=== PATIENT | male | born 1940 | race African-American/Black ===

== ENCOUNTER 2018-03-13 14:00 | Inpatient (IN) ==
--- NOTE | 2018-03-13 14:07 | Emergency Department Note ---
Disposition Clinical Impression: Hypoglycemia Disposition: Admitted As Inpatient Condition: Serious Referrals: Gavin Diallo MD [Primary Care Provider] - Forms: ED Satisfaction Letter Time of Disposition: 15:56 (I spoke with the hospitalist Dr. Boyd, and patient will be admitted) Altered Mental Status HPI - General Chief Complaint: ED Altered Mental Status Stated Complaint: LOW BLOOD SUGAR Time Seen by Provider: 03/13/18 14:05 Source: EMS, other ([facility]) Mode of arrival: EMS Limitations: other (Patient has a speech impediment and also schizophrenia) Nursing Notes Reviewed: Yes Vital Signs Reviewed: Yes - History of Present Illness HPI Narrative: 77-year-old male with history of schizophrenia, chronic speech impediment, was brought in via EMS from local [facility] for evaluation of low blood sugar. Patient is a diabetic , and was found by EMS to have a blood sugar in the low 30s. IV was started, patient was placed on D10, and became much more alert and awake after he was given IV dextrose. complaint: decreased responsiveness Onset (ago): Just MICROFILMER Pain Severity: none Pain Scale: 0 Context: diabetes Associated symptoms: Reports: denies other symptoms - Related Data Home Medications Medication Instructions Recorded Confirmed Amlodipine 5 mg PO DAILY 10/15/15 03/10/18 Divalproex (24 HR) 1,000 mg PO HS 10/15/15 03/10/18 Haloperidol 5 mg PO HS 10/15/15 03/10/18 Quetiapine Fumarate 400 mg PO HS 10/15/15 03/10/18 Aspirin 81 mg PO DAILY 10/26/15 03/10/18 Atorvastatin [Lipitor] 10 mg PO HS 06/03/17 03/10/18 Benztropine [Cogentin] 0.5 mg PO BID 06/03/17 03/10/18 Furosemide [Lasix] 20 mg PO DAILY 06/03/17 03/10/18 Glimepiride [Amaryl] 2 mg PO 0800 12/25/17 03/10/18 Linagliptin [Tradjenta] 5 mg PO DAILY 12/25/17 03/10/18 [place] Carbonate 300 mg PO DAILY 12/25/17 03/10/18 Omeprazole [PriLOSEC] 20 mg PO DAILY 12/25/17 03/10/18 metFORMIN [Glucophage] 500 mg PO BIDWM 12/25/17 03/10/18 Insulin ASPART [NovoLOG] 0 unit SQ TIDWM 03/10/18 03/10/18 Previous Rx's Medication Instructions Recorded GuaiFENesin/Dextromethorphan 10 ml PO Q6HR PRN #120 syrup 03/10/18 [Robitussin/DM] levoFLOXacin [Levaquin] 500 mg PO DAILY #5 tablet 03/10/18 Allergies Allergy/AdvReac Type Severity Reaction Status Date / Time No Known Allergies Allergy Verified 12/25/17 09:24 Past Medical History - Past Medical History Medical history: Reports: CHF, COPD, dementia, diabetes, GERD, hyperlipidemia, hypertension, renal disease, other Surgical history: Reports: other (unknown) Psychiatric history: Reports: schizophrenia, other - Social History Smoking Status: Current some day smoker Smokeless Tobacco Status: No Alcohol use: Reports: none Drug use: Reports: none Physical Exam - General Limitations: no limitations General appearance: alert, in no apparent distress - Head Head exam: atraumatic, normocephalic, normal inspection - Eye Eye exam: Present: normal appearance, PERRL, EOMI - Expanded Eye Exam Pupils: Left: reactive - ENT ENT exam: normal exam, normal oropharynx, mucous membranes moist - Expanded ENT Exam External ear exam: Present: normal external inspection Mouth exam: Present: normal external inspection Teeth exam: Present: normal inspection Throat exam: Present: normal inspection - Neck Neck exam: Present: normal inspection, full ROM, trachea midline - Chest Chest inspection: Present: normal inspection, symmetric chest wall rise - Respiratory Respiratory exam: Present: normal lung sounds bilaterally - Cardiovascular Cardiovascular exam: Present: regular rate, normal rhythm, normal heart sounds - Abdominal Exam Abdominal exam: Present: soft, Non-Tender. Absent: tenderness, distention, guarding, rebound, rigidity - Extremities Exam Extremities exam: Present: normal inspection, full ROM, pedal edema. Absent: tenderness - Expanded Upper Extremity Exam Shoulder exam: Present: normal inspection, full ROM Arm exam: Present: normal inspection, full ROM Elbow exam: Present: normal inspection, full ROM Forearm/Wrist exam: Present: normal inspection, full ROM Hand exam: Present: normal inspection, full ROM Vascular exam: Normal: capillary refill, radial pulse - Expanded Lower Extremity Exam Hip/Pelvis exam: Present: normal inspection, full ROM Upper leg exam: Present: normal inspection, full ROM Knee exam: Present: normal inspection, full ROM Lower leg exam: Present: normal inspection, full ROM Ankle exam: Present: normal inspection, full ROM Foot/toe exam: Present: normal inspection, full ROM Neurovascular/Tendon exam: Absent: motor deficit, sensory deficit, tendon deficit - Back Exam Back exam: Present: normal inspection, full ROM. Absent: tenderness - Neurological Exam Neurological exam: Present: alert, CN II-XII intact (Patient is alert and awake and able to follow commands, he is mildly confused to time and to reason he is here in the emergency department but I suspect this is normal mentation for this patient.), other - Expanded Neurological Exam Patient oriented to: Present: person, place, time Coma Scale Eye Opening: Spontaneous Coma Scale Motor Response: Obeys Commands Coma Scale Verbal Response: Oriented Coma Scale Total: 15 - Psychiatric Psychiatric exam: Present: normal affect, normal mood - Skin Skin exam: Present: warm, dry, intact, normal color Course Vital Signs Temperature 97.7 F 03/13/18 14:05 Pulse Rate 74 03/13/18 14:05 Respiratory Rate 20 03/13/18 14:05 Blood Pressure 124/72 03/13/18 14:05 O2 Sat by Pulse Oximetry 96 03/13/18 14:05 Temperature 97.7 F 03/13/18 14:27 Pulse Rate 102 03/13/18 15:48 Respiratory Rate 18 03/13/18 15:48 Blood Pressure 132/86 03/13/18 15:48 O2 Sat by Pulse Oximetry 94 03/13/18 15:48 Oxygen Delivery Oxygen Delivery Nasal Cannula Altered Mental Status - [facility] Narrative Medical decision making narrative: Patient was given an amp of D50, placed on D10W, was given a tray of food to eat , and blood sugar still bottomed out. Patient even after his second dose of D50 W sugar bottomed out again and was started on D5W 125 miles an hour. Patient will be admitted with Accu-Cheks on the floor to 1 hour his diabetic medications and often held. - Differential Diagnosis Likely: altered mental status, hypoglycemia, hyponatremia - Lab Data Result diagrams: 03/13/18 14:16 03/13/18 15:56 Lab Results 03/13/18 03/13/18 03/13/18 Range/Units 14:16 14:16 14:16 WBC 11.4 H (4.3-11.1) K/mcL RBC 4.21 (4.19-5.50) M/mcL Hgb 11.1 L (12.9-16.9) g/dL Hct 36.6 L (37.5-50.1) % MCV 86.9 (83.0-100.0) fL MCH 26.4 L (28.0-33.3) pg MCHC 30.3 L (31.6-35.5) g/dL RDW 18.1 H (11.5-14.5) % Plt Count 199 (140-400) K/mcL MPV 11.1 (9.4-12.4) fL Seg Neutrophils % 74.0 % Band Neutrophils % 6.0 H (0-4) % Lymphocytes % 16.0 % Monocytes % 4.0 % Neutrophils # 9.1 H (1.6-8.9) K/mcL Lymphocytes # 1.8 (0.6-4.6) K/mcL Monocytes # 0.5 (0.0-1.3) K/mcL Reactive Lymphocytes Present A (Not Present) Platelet Estimate Normal (Normal) Anisocytosis 1+ A (Not Present) PT 12.6 H (9.4-12.1) Seconds INR 1.2 APTT 33.0 (26.0-36.0) Seconds Sodium 142 (136-145) mEq/L Potassium 4.2 (3.5-5.1) mEq/L Chloride 106 (98-107) mEq/L Carbon Dioxide 29 (23-29) mEq/L BUN 30 H (8-23) mg/dL Creatinine 2.31 H (0.70-1.30) mg/dL Est GFR ( Amer) 33 L (> 60) Est GFR (Non-Af Amer) 28 L (> 60) BUN/Creatinine Ratio 13 (6-26) Glucose 24 L* (70-105) mg/dL Calculated Osmolality 296 (280-300) Calcium 9.0 (8.6-10.3) mg/dL Total Bilirubin 0.3 (0.3-1.0) mg/dL Direct Bilirubin 0.1 (0.0-0.2) mg/dL Indirect Bilirubin 0.2 (0.0-1.2) mg/dL AST 17 (13-39) Units/L ALT 9 (7-52) Units/L Alkaline Phosphatase 74 (34-104) Units/L Troponin I < 0.03 (< 0.04) ng/mL Serum Total Protein 7.7 (6.4-8.9) g/dL Albumin 3.9 (3.5-5.7) g/dL Globulin 3.8 H (2.4-3.5) g/dL Albumin/Globulin Ratio 1.0 L (1.1-2.2) Ethyl Alcohol < 10 (Less than 10) mg/dL 03/13/18 Range/Units 15:56 WBC (4.3-11.1) K/mcL RBC (4.19-5.50) M/mcL Hgb (12.9-16.9) g/dL Hct (37.5-50.1) % MCV (83.0-100.0) fL MCH (28.0-33.3) pg MCHC (31.6-35.5) g/dL RDW (11.5-14.5) % Plt Count (140-400) K/mcL MPV (9.4-12.4) fL Seg Neutrophils % % Band Neutrophils % (0-4) % Lymphocytes % % Monocytes % % Neutrophils # (1.6-8.9) K/mcL Lymphocytes # (0.6-4.6) K/mcL Monocytes # (0.0-1.3) K/mcL Reactive Lymphocytes (Not Present) Platelet Estimate (Normal) Anisocytosis (Not Present) PT (9.4-12.1) Seconds INR APTT (26.0-36.0) Seconds Sodium (136-145) mEq/L Potassium (3.5-5.1) mEq/L Chloride (98-107) mEq/L Carbon Dioxide (23-29) mEq/L BUN (8-23) mg/dL Creatinine (0.70-1.30) mg/dL Est GFR ( Amer) (> 60) Est GFR (Non-Af Amer) (> 60) BUN/Creatinine Ratio (6-26) Glucose 34 L* (70-105) mg/dL Calculated Osmolality (280-300) Calcium (8.6-10.3) mg/dL Total Bilirubin (0.3-1.0) mg/dL Direct Bilirubin (0.0-0.2) mg/dL Indirect Bilirubin (0.0-1.2) mg/dL AST (13-39) Units/L ALT (7-52) Units/L Alkaline Phosphatase (34-104) Units/L Troponin I (< 0.04) ng/mL Serum Total Protein (6.4-8.9) g/dL Albumin (3.5-5.7) g/dL Globulin (2.4-3.5) g/dL Albumin/Globulin Ratio (1.1-2.2) Ethyl Alcohol (Less than 10) mg/dL - Radiology Data Radiology results reviewed: Yes I reviewed the patient's radiology results. Mild pulmonary vascular congestion per radiology reading - EKG Data EKG attestation: Yes I reviewed and interpreted this EKG. EKG results narrative: Is normal sinus rhythm, minimal signs of left ventricular hypertrophy otherwise no acute abnormality EKG shows normal: sinus rhythm Rate: normal Rhythm: NSR [place]/QRS: normal TPA Checklist - LKW: 3-4.5 hrs Add. Warnings/Precautions Patient/family understanding: The patient/family members have been counseled and understood the risk, benefit , and alternatives of treatment.
[2018-03-13] MEDS ORDERED: *HR* Dextrose 50 % in Water (Syg) 50 ML SYRINGE ONE ×3 (14:19→18:51)
[2018-03-13] MEDS: *HR* Dextrose 50 % in Water (Syg) 50 ML SYRINGE IVP ONE ×3 (14:23→16:40)
[2018-03-13 14:25] LABS: Hematocrit 36.6 % (37.5-50.1); Hemoglobin 11.1 g/dL (12.9-16.9); Mean Corpuscular HGB Conc 30.3 g/dL (31.6-35.5); Mean Corpuscular Hemoglobin 26.4 pg (28.0-33.3); Mean Corpuscular Volume 86.9 fL (83.0-100.0); Mean Platelet Volume 11.1 fL (9.4-12.4); Platelet Count 199 K/mcL (140-400); Red Blood Count 4.21 M/mcL (4.19-5.50); Red Cell Distribution Width 18.1 % (11.5-14.5)
[2018-03-13 14:31] LABS: INR 1.2; Prothrombin Time 12.6 Seconds (9.4-12.1)
[2018-03-13 14:43] LABS: Alanine Aminotransferase 9 Units/L (7-52); Albumin 3.9 g/dL (3.5-5.7); Alkaline Phosphatase 74 Units/L (34-104); Aspartate Amino Transferase 17 Units/L (13-39); BUN/Creatinine Ratio 13 (6-26); Bilirubin,Direct 0.1 mg/dL (0.0-0.2); Bilirubin,Indirect 0.2 mg/dL (0.0-1.2); Bilirubin,Total 0.3 mg/dL (0.3-1.0); Blood Urea Nitrogen 30 mg/dL (8-23); Carbon Dioxide 29 mEq/L (23-29); Chloride 106 mEq/L (98-107); Ethanol < 10 mg/dL (Less than 10); Globulin 3.8 g/dL (2.4-3.5); Glucose 24 mg/dL (70-105); Osmolality,Calculated 296 (280-300); Potassium 4.2 mEq/L (3.5-5.1); Sodium 142 mEq/L (136-145); Total Protein 7.7 g/dL (6.4-8.9); Troponin I < 0.03 ng/mL (< 0.04); eGFR For African Americans 33 (> 60); eGFR For Non-African Americans 28 (> 60)
[2018-03-13 14:49] LABS: Lymphocytes # 1.8 K/mcL (0.6-4.6); Neutrophils # 9.1 K/mcL (1.6-8.9)
[2018-03-13 14:50] LABS: Anisocytosis 1+ (Not Present); Monocytes # 0.5 K/mcL (0.0-1.3); Reactive Lymphocytes Present (Not Present)
[2018-03-13 14:51] LABS: Platelet Estimate Normal (Normal)
[2018-03-13] MEDS ORDERED: D5% in Water 1,000 ML IVC SCH (16:30)
[2018-03-13] MEDS ORDERED: D5% in Water 1,000 ML IVC ONE (16:32)
[2018-03-13] MEDS ORDERED: *HR* Dextrose 50 % in Water (Syg) 50 ML SYRINGE IVP ONE (18:57)
--- NOTE | 2018-03-13 18:58 | Internal Med History&Physical ---
Date of Encounter: 03/13/18 Time of Encounter: 18:40 Assessment and Plan (1) Hypoglycemia Current visit: Yes Status: Acute Diabetic medications will be held and blood sugars monitored. Hemoglobin A1c will be checked in a.m. (2) Anemia Current visit: Yes Status: Acute Will order anemia testing in a.m. Qualifiers: Anemia type: unspecified type Qualified Code(s): D64.9 - Anemia, unspecified (3) Leukocytosis Current visit: Yes Status: Acute Will recheck labs in a.m. Qualifiers: Leukocytosis type: bandemia Qualified Code(s): D72.825 - Bandemia (4) CKD (chronic kidney disease) stage 3, GFR 30-59 ml/min Current visit: Yes Status: Chronic Will monitor renal indices. (5) Hypertension Current visit: Yes Status: Chronic Will hold Norvasc because of edema. Monitor blood pressure. Qualifiers: Hypertension type: essential hypertension Qualified Code(s): I10 - Essential (primary) hypertension (6) Peripheral edema Current visit: No Status: Acute Will hold Norvasc as per above. Check BN peptide in a.m. Internal Medicine - H&P: HPI Chief complaint: Hypoglycemia Admitted From: Emergency Dept Plans for Post Hospital Care: Transfer Property [facility] Care History of present illness: Mr. Baltazar is a 77 year old male who was sent to emergency room from [facility] after he was found to have hypoglycemia with blood sugar in the low 30s. He was treated in emergency room with IV glucose but had recurrent episodes of hypoglycemia. It was felt he should be admitted to [facility] floor for overnight observation and blood sugar monitoring. He has schizophrenia and dementia and cannot give a reliable history. Review of available records from H&P of October 2015 show he was diagnosed with DM 2 approximately 2012. Med list from the SNF shows use of glimepiride, Tradjenta, Glucophage, and NovoLog with meals. He denied thyroid disease or hyperlipidemia. Past Med Surg Social Fam HX - Past Medical History Medical history: CHF, COPD, dementia, diabetes, GERD, hyperlipidemia, hypertension, renal disease, other Psychiatric history: schizophrenia, other - Past Surgical History Surgical History: other (unknown) - Social History Smoking Status: Current some day smoker Smokeless Tobacco Status: No Alcohol use: none Drug use: none Internal Medicine - H&P: Meds Amlodipine 5 mg PO DAILY 10/15/15 [History] Divalproex (24 HR) 1,000 mg PO HS 10/15/15 [History] Haloperidol 5 mg PO HS 10/15/15 [History] Quetiapine Fumarate 400 mg PO HS 10/15/15 [History] Aspirin 81 mg PO DAILY 10/26/15 [History] Atorvastatin [Lipitor] 10 mg PO HS 06/03/17 [History] Benztropine [Cogentin] 0.5 mg PO BID 06/03/17 [History] Furosemide [Lasix] 20 mg PO DAILY 06/03/17 [History] Glimepiride [Amaryl] 2 mg PO 0800 12/25/17 [History] Linagliptin [Tradjenta] 5 mg PO DAILY 12/25/17 [History] [place] Carbonate 300 mg PO DAILY 12/25/17 [History] Omeprazole [PriLOSEC] 20 mg PO DAILY 12/25/17 [History] metFORMIN [Glucophage] 500 mg PO BIDWM 12/25/17 [History] GuaiFENesin/Dextromethorphan [Robitussin/DM] 10 ml PO Q6HR PRN #120 syrup [Rx] Insulin ASPART [NovoLOG] 0 unit SQ TIDWM 03/10/18 [History] levoFLOXacin [Levaquin] 500 mg PO DAILY #5 tablet 03/10/18 [Rx] 3 Allergy/AdvReac Type Severity Reaction Status Date / Time No Known Allergies Allergy Verified 12/25/17 09:24 All Systems PM: A 10-system review of systems was performed and is negative for pertinent findings except as documented above in the HPI. Review of systems: Review of systems from his October [facility] hospitalization were reviewed and revised as below. Gen.: His weight has decreased from 112.718 kg on 10/26/2015 to 107.955 kg at present. Cardiovascular: He denies hypertension but his home medicine list includes amlodipine. He does not know why he is taking it. He denies [place] heart failure DVT or pulmonary embolus Respiratory: He has smoked since age 17 up to 1 pack per day. He does not wear oxygen at the [facility]. He denies chronic lung disease GI: He denies disorders of his liver gallbladder or exocrine pancreas : Denies hematuria dysuria kidney stones or other kidney or bladder problems. Review of records shows he has CKD stage III Neurologic: He has a diagnosis of dementia. He denies large distribution strokes or seizures Endocrine: As per history of present illness Hematology/oncology: He denies blood disorders or cancers. He was found to be anemic on admission but denied knowledge of this. Psychiatric: He has a diagnosis of schizophrenia per available records. He denied this. He denies other mental health disorders Musculoskeletal: Denies arthritis gout or osteoporosis - Constitutional Vitals: Temp Pulse Resp BP Pulse Ox 98.5 F 67 16 136/73 94 03/13/18 18:34 03/13/18 18:34 03/13/18 18:34 03/13/18 18:34 03/13/18 18:34 Exam: Gen.: He is a well-developed and nourished male resting comfortably in bed who appears in no acute distress. He is intermittently uncooperative with questioning and examination. HEENT: Head is atraumatic and normocephalic. Eyes: EOMI. There is no scleral icterus. He has bilateral arcus senilis. Mouth: Mucosa is moist. Tongue protrudes midline. Neck: He does not allow examination Heart: Regular without murmurs gallops or ectopics Lungs: No wheezes or crackles are heard. Abdomen: Soft and nontender. He has an umbilical hernia that is easily reducible. No masses or guarding are noted. Extremities: He has significant venous stasis pigmentation changes from his knees to his toes. There is 1-2+ pitting edema. Dorsalis pedis and posttibial pulses are nonpalpable. Neurologic: Mental status: He does not know his age or location. He cannot give any history. Cranial nerves: Facial movements are symmetric. Forehead bilaterally. Tongue is midline. EOMI. Motor: He has hand tremor at rest. No further neurologic testing is attempted. Skin: Warm and dry Internal Med - H&P Results - Labs CBC & Chem 7: 03/13/18 14:16 03/13/18 15:56
[2018-03-13] MEDS ORDERED: Divalproex (24 HR) 500 MG TABLET PO SCH (21:00)
[2018-03-13] MEDS: *HR* Dextrose 50 % in Water (Syg) 50 ML SYRINGE IVP PRN (23:00)
[2018-03-14] MEDS: *HR* Dextrose 50 % in Water (Syg) 50 ML SYRINGE IVP PRN ×4 (00:43→08:03)
[2018-03-14] MEDS: D5% in Water 1,000 ML IVC SCH ×2 (04:16→13:50)
[2018-03-14 06:56] LABS: Hematocrit 34.5 % (37.5-50.1); Hemoglobin 10.7 g/dL (12.9-16.9); Mean Corpuscular Hemoglobin 26.4 pg (28.0-33.3); Mean Corpuscular Volume 85.2 fL (83.0-100.0); Mean Platelet Volume 10.7 fL (9.4-12.4); Platelet Count 186 K/mcL (140-400); Red Blood Count 4.05 M/mcL (4.19-5.50); Red Cell Distribution Width 17.6 % (11.5-14.5)
[2018-03-14 06:57] LABS: Calcium 8.4 mg/dL (8.6-10.3); Magnesium 2.3 mg/dL (1.6-2.6); Potassium 4.3 mEq/L (3.5-5.1)
[2018-03-14 06:59] LABS: Lithium 0.6 mEq/L (0.6-1.2)
[2018-03-14 07:39] LABS: Basophils # 0.2 K/mcL (0.0-0.2); Eosinophils # 0.2 K/mcL (0.0-0.6); Monocytes # 0.7 K/mcL (0.0-1.3)
[2018-03-14 07:40] LABS: Hypochromasia Present (Not Present); Microcytosis Present (Not Present); Reactive Lymphocytes Present (Not Present)
[2018-03-14 07:41] LABS: Lymphocytes # 1.9 K/mcL (0.6-4.6); Platelet Estimate Normal (Normal)
[2018-03-14 08:57] LABS: Estimated Average Glucose 117 mg/dl; Hemoglobin A1C 5.7 %
[2018-03-14] MEDS ORDERED: amLODIPine 5 MG TABLET PO SCH (09:00)
[2018-03-14] MEDS ORDERED: Aspirin Enteric Coated 81 MG Tablet PO SCH (09:00)
[2018-03-14] MEDS ORDERED: levoFLOXacin 500 MG TABLET PO ONE (09:00)
[2018-03-14] MEDS ORDERED: Lithium Carbonate 300 MG CAPSULE PO SCH (09:00)
[2018-03-14] MEDS ORDERED: Furosemide 20 MG TABLET PO SCH (09:00)
[2018-03-14 09:30] LABS: Folate 16.2 ng/mL (3.0-16.0)
[2018-03-14 10:27] VITALS: BP 123/67
--- NOTE | 2018-03-14 12:01 | Discharge Summary ---
Date of Encounter: 03/14/18 Time of Encounter: 11:50 - Discharge Diagnosis (1) Hypoglycemia Priority: Primary Status: Resolved (2) Anemia Priority: Secondary Status: Acute Qualifiers: Anemia type: iron deficiency Iron deficiency anemia type: unspecified iron deficiency Qualified Code(s): D50.9 - Iron deficiency anemia, unspecified (3) Leukocytosis Priority: Secondary Status: Acute Qualifiers: Leukocytosis type: bandemia Qualified Code(s): D72.825 - Bandemia (4) CKD (chronic kidney disease) stage 3, GFR 30-59 ml/min Priority: Secondary Status: Chronic (5) Hypertension Priority: Secondary Status: Chronic Qualifiers: Hypertension type: essential hypertension Qualified Code(s): I10 - Essential (primary) hypertension (6) Peripheral edema Priority: Secondary Status: Acute Hospital course: Mr. Baltazar is a 77 year old male who was sent to emergency room from [facility] after he was found to have hypoglycemia with blood sugar in the low 30s. He was treated in emergency room with IV glucose but had recurrent episodes of hypoglycemia. It was felt he should be admitted to [facility] for overnight observation and blood sugar monitoring. Initial orders were written by the emergency room physician. I saw him on March 13 and performed the history and physical. Diabetic medications were held and he was given IV D5. Blood sugars were checked and boluses of D50 were given as needed to maintain blood sugar in a safe range. His hypoglycemia resolved by the morning of March 14. Hemoglobin A1c returned satisfactory at 5.7%. Amaryl will be discontinued and blood sugars can be monitored at the SNF to determine if other diabetic medications could be decreased or discontinued. Norvasc was held because of edema. There was improvement in the edema by time of discharge. His blood pressure remained satisfactory. BN peptide was normal at 64. He will remain off Norvasc and use reduced dose Lasix at discharge. Azotemia improved with BUN and creatinine being 24 and 1.5 respectively on March 14 with estimated GFR 43. Anemia testing showed iron 25, transferrin saturation 8%, transferrin 237, ferritin 63, B12 695, and folate 16.2. He will be started on ferrous sulfate with vitamin C. PPI will be changed to prn to improve absorption of the iron. WBC normalized to 9.0 on March 14 with decreased bandemia. He will be discharged back to [facility] and follow with his PCP. - Time Spent with Patient Total time spent providing and/or coordinating discharge services: - Discharge Medications Prescriptions: Ascorbic Acid [Vitamin C] 500 mg PO DAILY 30 Days tablet Ferrous Sulfate 325 mg PO DAILY 30 Days tablet Home Medications: Divalproex (24 HR) 1,000 mg PO HS 10/15/15 [History] Haloperidol 5 mg PO HS 10/15/15 [History] Quetiapine Fumarate 400 mg PO HS 10/15/15 [History] Atorvastatin [Lipitor] 10 mg PO HS 06/03/17 [History] Benztropine [Cogentin] 0.5 mg PO BID 06/03/17 [History] Linagliptin [Tradjenta] 5 mg PO DAILY 12/25/17 [History] [place] Carbonate 300 mg PO DAILY 12/25/17 [History] metFORMIN [Glucophage] 500 mg PO BIDWM 12/25/17 [History] GuaiFENesin/Dextromethorphan [Robitussin/Dm] 10 ml PO Q6HR PRN #120 syrup [Rx] Insulin ASPART [NovoLOG] 0 unit SQ TIDWM 03/10/18 [History] levoFLOXacin [Levaquin] 500 mg PO DAILY #5 tablet 03/10/18 [Rx] Ascorbic Acid [Vitamin C] 500 mg PO DAILY 30 Days tablet 03/14/18 [Rx] Aspirin 81 mg PO Q48H #0 03/14/18 [Rx] Ferrous Sulfate 325 mg PO DAILY 30 Days tablet 03/14/18 [Rx] Furosemide [Lasix] 20 mg PO Q48H #0 03/14/18 [Rx] Omeprazole [PriLOSEC] 20 mg PO DAILY PRN #0 03/14/18 [Rx] Allergies/Adverse Reactions: 3 Allergy/AdvReac Type Severity Reaction Status Date / Time No Known Allergies Allergy Verified 12/25/17 09:24 Date of admission: 03/13/18 16:50 Primary care physician: Gavin Diallo MD - Constitutional Vitals: Temp Pulse Resp BP Pulse Ox 98.2 F 55 20 123/67 98 03/14/18 10:26 03/14/18 10:26 03/14/18 10:26 03/14/18 10:26 03/14/18 10:26 - Patient Status Disposition: Transfer SNF Condition: Serious Overall status at discharge: patient is progressing back to baseline - Discharge Instructions Follow Up With: Gavin Diallo MD [Primary Care Provider] - 1 week - Diet and Activity Activity: resume usual activities as tolerated Diet: diabetic diet
--- NOTE | 2018-03-14 12:10 | Physician Discharge Referral ---
ExtendedCare Referral Info Transfer To: [facility] Provider in Charge: Demarcus Provider in Charge after Transfer: PCP (Gavin Diallo M.D.) - Diagnosis (1) Hypoglycemia Priority: Primary Status: Resolved (2) Anemia Priority: Secondary Status: Acute (3) Leukocytosis Priority: Secondary Status: Resolved (4) CKD (chronic kidney disease) stage 3, GFR 30-59 ml/min Priority: Secondary Status: Chronic (5) Hypertension Priority: Secondary Status: Chronic (6) Peripheral edema Priority: Secondary Status: Acute Prognosis: Fair - Transfer Medications Prescriptions: Ascorbic Acid [Vitamin C] 500 mg PO DAILY 30 Days tablet Ferrous Sulfate 325 mg PO DAILY 30 Days tablet Home Medications: Divalproex (24 HR) 1,000 mg PO HS 10/15/15 [History] Haloperidol 5 mg PO HS 10/15/15 [History] Quetiapine Fumarate 400 mg PO HS 10/15/15 [History] Atorvastatin [Lipitor] 10 mg PO HS 06/03/17 [History] Benztropine [Cogentin] 0.5 mg PO BID 06/03/17 [History] Linagliptin [Tradjenta] 5 mg PO DAILY 12/25/17 [History] [place] Carbonate 300 mg PO DAILY 12/25/17 [History] metFORMIN [Glucophage] 500 mg PO BIDWM 12/25/17 [History] GuaiFENesin/Dextromethorphan [Robitussin/Dm] 10 ml PO Q6HR PRN #120 syrup [Rx] Insulin ASPART [NovoLOG] 0 unit SQ TIDWM 03/10/18 [History] levoFLOXacin [Levaquin] 500 mg PO DAILY #5 tablet 03/10/18 [Rx] Ascorbic Acid [Vitamin C] 500 mg PO DAILY 30 Days tablet 03/14/18 [Rx] Aspirin 81 mg PO Q48H #0 03/14/18 [Rx] Ferrous Sulfate 325 mg PO DAILY 30 Days tablet 03/14/18 [Rx] Furosemide [Lasix] 20 mg PO Q48H #0 03/14/18 [Rx] Omeprazole [PriLOSEC] 20 mg PO DAILY PRN #0 03/14/18 [Rx] Allergies/Adverse Reactions: 3 Allergy/AdvReac Type Severity Reaction Status Date / Time No Known Allergies Allergy Verified 12/25/17 09:24 - Respiratory Orders Smoking Cessation: Smoking cessation has been advised. For more information, call the [place] Tobacco Quit Line at 9-158-HPDB-NOW. - Lab Orders Lab Orders: Other (include drug levels w/frequency) (CBC with differential, BMP , BN peptide in 1 week) - Rehabiliation Orders Rehab Orders: Evaluation for Physical Therapy, Evaluation for Occupational Therapy - Diet Orders No Concentrated Sweets CERTIFICATION: I certify that the transfer of the above named patient to an Extended Care Facility is necessary for the continuing treatment of the diagnosis listed. The above information is true and accurate reflection of patient's current condition. Confidential - Redisclosure prohibited without a patient's written consent.
== END 2018-03-14 14:35 | DRG 638 ==
LOC: EMEROOPIK 14:00 → INPPIK 14:00
PROVIDERS: ADMIT Internal Medicine; ATTEND Internal Medicine

== ENCOUNTER 2018-04-04 18:46 | Observation (INO) ==
[2018-04-04] MEDS ORDERED: 0.9 % Sodium Chloride 1,000 ML IVC ONE (18:52)
--- NOTE | 2018-04-04 19:03 | Emergency Department Note ---
Disposition Clinical Impression: Altered mental status Qualifiers: Altered mental status type: disorientation Qualified Code(s): R41.0 - Disorientation, unspecified Acute on chronic renal failure Qualifiers: Acute renal failure type: unspecified Chronic kidney disease stage: unspecified stage Qualified Code(s): N17.9 - Acute kidney failure, unspecified Disposition: Admitted As Inpatient Condition: Fair Referrals: Gavin Diallo MD [Primary Care Provider] - Forms: ED Satisfaction Letter Altered Mental Status HPI - General Chief Complaint: ED General Medical Stated Complaint: low heart rate Time Seen by Provider: 04/04/18 18:51 Source: patient, EMS, other (correction report) Mode of arrival: EMS Limitations: altered mental status, other (Schizophrenia) Nursing Notes Reviewed: Yes Vital Signs Reviewed: Yes - History of Present Illness HPI Narrative: Patient arrives from [facility] with report of decreased oral intake for 3 days, elevated blood sugars into the 200s, possible bradycardia and decreased interaction speech. Patient is able to answer some simple questions and states "I feel great". He denies headache or visual changes. He denies chest pain or shortness of breath. He then would make good eye contact but refused to answer any other questions. He has a baseline tremor, has excellent Accu-Chek and is not bradycardic on arrival. MD complaint: altered mental status, decreased responsiveness, weakness Onset (ago): day(s) Timing confirmed by: caregiver Pain Scale: 0 Consistency of Symptoms: getting worse Context: history psychiatric disease Associated symptoms: Reports: denies other symptoms - Related Data Home Medications Medication Instructions Recorded Confirmed Divalproex (24 HR) 1,000 mg PO HS 10/15/15 04/04/18 Haloperidol 5 mg PO HS 10/15/15 04/04/18 Atorvastatin [Lipitor] 10 mg PO HS 06/03/17 04/04/18 Benztropine [Cogentin] 0.5 mg PO BID 06/03/17 04/04/18 Linagliptin [Tradjenta] 5 mg PO DAILY 12/25/17 04/04/[address] [place] Carbonate 300 mg PO DAILY 12/25/17 04/04/18 metFORMIN [Glucophage] 500 mg PO BIDWM 12/25/17 04/04/18 Insulin ASPART [NovoLOG] 0 unit SQ TIDWM 03/10/18 04/04/18 Albuterol Neb [Proventil Neb] 2.5 mg IH Q4HR 04/04/18 04/04/18 Quetiapine Fumarate [Seroquel] 200 mg PO TID 04/04/18 04/04/18 Previous Rx's Medication Instructions Recorded GuaiFENesin/Dextromethorphan 10 ml PO Q6HR PRN #120 syrup 03/10/18 [Robitussin/Dm] Ascorbic Acid [Vitamin C] 500 mg PO DAILY 30 Days tablet 03/14/18 Aspirin 81 mg PO Q48H #0 03/14/18 Ferrous Sulfate 325 mg PO DAILY 30 Days tablet 03/14/18 Furosemide [Lasix] 20 mg PO Q48H #0 03/14/18 Allergies Allergy/AdvReac Type Severity Reaction Status Date / Time No Known Allergies Allergy Verified 12/25/17 09:24 Limitations: ROS unobtainable due to patients medical condition Past Medical History - Past Medical History Source: old records reviewed, nursing notes reviewed Medical history: Reports: CHF, COPD, dementia, diabetes, GERD, hyperlipidemia, hypertension, renal disease, other Surgical history: Reports: other (unknown) Psychiatric history: Reports: schizophrenia, other - Social History Smoking Status: Current some day smoker Smokeless Tobacco Status: No Alcohol use: Reports: none Drug use: Reports: none Physical Exam - General Limitations: altered mental status, physical limitation General appearance: alert, in no apparent distress, other (Patient has a flat affect and looks about the room at staff.) - Head Head exam: atraumatic, normocephalic, normal inspection - Eye Eye exam: Present: normal appearance, EOMI, miosis, other (Patient has arcus senilis). Absent: conjunctival injection - ENT ENT exam: normal exam, normal oropharynx, mucous membranes moist - Neck Neck exam: Present: normal inspection, full ROM, trachea midline - Chest Chest inspection: Present: normal inspection, symmetric chest wall rise - Respiratory Respiratory exam: Present: normal lung sounds bilaterally. Absent: respiratory distress, wheezes, prolonged expiratory phase - Cardiovascular Cardiovascular exam: Present: regular rate, normal rhythm, normal heart sounds. Absent: bradycardia, tachycardia - Abdominal Exam Abdominal exam: Present: soft, Non-Tender, normal bowel sounds. Absent: tenderness, distention, guarding, rebound, rigidity - Extremities Exam Extremities exam: Present: normal inspection, normal capillary refill. Absent: tenderness, pedal edema - Expanded Lower Extremity Exam Neurovascular/Tendon exam: Present: normal capillary refill Gait: not tested/not observed - Neurological Exam Neurological exam: Present: alert, CN II-XII intact. Absent: oriented X3 - Psychiatric Psychiatric exam: Present: flat affect. Absent: agitated, anxious - Skin Skin exam: Present: warm, dry, intact, normal color Course Course Narrative: 1950: Care has been discussed with Dr. Tracy. He is agreeable with observation for continued hydration and holding some of his medications. We will still obtain a urinalysis if he goes during his time in the emergency department or it will be checked inpatient with further treatment dictated on the results of testing. Verbal orders have been obtained for observation. Patient remains in stable condition. He is a little more conversive at this time. Vital Signs Temperature 97.6 F 04/04/18 18:47 Pulse Rate 77 04/04/18 18:47 Respiratory Rate 12 04/04/18 18:47 Blood Pressure 148/66 04/04/18 18:47 O2 Sat by Pulse Oximetry 84 04/04/18 18:47 Temperature 97.6 F 04/04/18 18:47 Pulse Rate 77 04/04/18 18:47 Respiratory Rate 12 04/04/18 18:47 Blood Pressure 148/66 04/04/18 18:47 O2 Sat by Pulse Oximetry 84 04/04/18 18:47 Oxygen Delivery Oxygen Delivery Room Air Altered Mental Status - Differential Diagnosis Likely: altered mental status, delirium, dementia, hypoglycemia, hyponatremia, psychiatric disease, sepsis - Medical Records Medical records reviewed: Yes I reviewed the patient's medical records. - Lab Data Lab results reviewed: Yes I reviewed the patient's lab results. Result diagrams: 04/04/18 19:05 04/04/18 19:05 Lab Results 04/04/18 04/04/18 04/04/18 Range/Units 19:05 19:05 19:05 WBC 8.4 (4.3-11.1) K/mcL RBC 4.25 (4.19-5.50) M/mcL Hgb 11.3 L (12.9-16.9) g/dL Hct 36.1 L (37.5-50.1) % MCV 84.9 (83.0-100.0) fL MCH 26.6 L (28.0-33.3) pg MCHC 31.3 L (31.6-35.5) g/dL RDW 18.6 H (11.5-14.5) % Plt Count 222 (140-400) K/mcL MPV 11.0 (9.4-12.4) fL Immature Gran % 0.4 (0-4) % Seg Neutrophils % 77.9 % Lymphocytes % 12.3 % Monocytes % 9.0 % Eosinophils % 0.2 % Basophils % 0.2 % Neutrophils # 6.5 (1.6-8.9) K/mcL Lymphocytes # 1.0 (0.6-4.6) K/mcL Monocytes # 0.8 (0.0-1.3) K/mcL Eosinophils # 0.0 (0.0-0.6) K/mcL Basophils # 0.0 (0.0-0.2) K/mcL PT 12.7 H (9.4-12.1) Seconds INR 1.2 APTT 35.2 (26.0-36.0) Seconds Sodium 144 (136-145) mEq/L Potassium 4.2 (3.5-5.1) mEq/L Chloride 109 H (98-107) mEq/L Carbon Dioxide 27 (23-29) mEq/L BUN 48 H (8-23) mg/dL Creatinine 2.82 H (0.70-1.30) mg/dL Est GFR ( Amer) 27 L (> 60) Est GFR (Non-Af Amer) 22 L (> 60) BUN/Creatinine Ratio 17 (6-26) Glucose 74 (70-105) mg/dL Calculated Osmolality 309 H (280-300) Calcium 9.6 (8.6-10.3) mg/dL Total Bilirubin 0.3 (0.3-1.0) mg/dL Direct Bilirubin 0.1 (0.0-0.2) mg/dL Indirect Bilirubin 0.2 (0.0-1.2) mg/dL AST 11 L (13-39) Units/L ALT 7 (7-52) Units/L Alkaline Phosphatase 78 (34-104) Units/L Troponin I < 0.03 (< 0.04) ng/mL Serum Total Protein 8.1 (6.4-8.9) g/dL Albumin 3.6 (3.5-5.7) g/dL Globulin 4.5 H (2.4-3.5) g/dL Albumin/Globulin Ratio 0.8 L (1.1-2.2) - Radiology Data Radiology results reviewed: Yes I reviewed the patient's radiology results. Single view chest x-ray is performed. This does not demonstrate evidence for infiltrate, effusion, pneumothorax, foreign body or heart failure. The cardiac silhouette is normal. I do not see abnormality to the osseous structures of the chest. This is on my interpretation. CT head is performed. This is reviewed on bone and soft tissue windows. There is no evidence for acute intracranial bleed, shift, mass or edema. Patient has cerebral atrophy appropriate for age. Mastoids and sinuses appear normal. There is no fracture evident. This is on my interpretation. Impressions Chest X-Ray 04/04/18 18:52 IMPRESSION: No acute cardiac or pulmonary disease. D/ / Angel Panda MD / Angel Panda MD Interpreting Provider: Angel Panda MD Head CT 04/04/18 18:52 IMPRESSION: No acute intracranial abnormality. Motion limitation. D/ / Angel Panda MD / Angel Panda MD Interpreting Provider: Angel Panda MD - EKG Data EKG attestation: Yes I reviewed and interpreted this EKG. EKG shows normal: sinus rhythm, axis, intervals, QRS complexes, ST-T waves Rate: normal (56) Interpretation: no acute changes (Extensive artifact from the patient's baseline tremor.) TPA Checklist - LKW: 3-4.5 hrs Add. Warnings/Precautions Patient/family understanding: The patient/family members have been counseled and understood the risk, benefit , and alternatives of treatment.
[2018-04-04 19:12] LABS: Basophils % 0.2 %; Eosinophils % 0.2 %; Hematocrit 36.1 % (37.5-50.1); Hemoglobin 11.3 g/dL (12.9-16.9); Immature Granulocytes % 0.4 % (0-4); Lymphocytes % 12.3 %; Mean Corpuscular HGB Conc 31.3 g/dL (31.6-35.5); Mean Corpuscular Hemoglobin 26.6 pg (28.0-33.3); Mean Corpuscular Volume 84.9 fL (83.0-100.0); Monocytes # 0.8 K/mcL (0.0-1.3); Neutrophils # 6.5 K/mcL (1.6-8.9); Platelet Count 222 K/mcL (140-400); Red Blood Count 4.25 M/mcL (4.19-5.50); Red Cell Distribution Width 18.6 % (11.5-14.5); Segmented Neutrophils % 77.9 %
[2018-04-04 19:19] LABS: INR 1.2; Prothrombin Time 12.7 Seconds (9.4-12.1)
[2018-04-04 19:22] LABS: Activated Partial Thrombo Time 35.2 Seconds (26.0-36.0)
[2018-04-04 19:31] LABS: Alanine Aminotransferase 7 Units/L (7-52); Albumin 3.6 g/dL (3.5-5.7); Albumin/Globulin Ratio 0.8 (1.1-2.2); Alkaline Phosphatase 78 Units/L (34-104); Aspartate Amino Transferase 11 Units/L (13-39); BUN/Creatinine Ratio 17 (6-26); Bilirubin,Direct 0.1 mg/dL (0.0-0.2); Bilirubin,Indirect 0.2 mg/dL (0.0-1.2); Bilirubin,Total 0.3 mg/dL (0.3-1.0); Blood Urea Nitrogen 48 mg/dL (8-23); Calcium 9.6 mg/dL (8.6-10.3); Carbon Dioxide 27 mEq/L (23-29); Chloride 109 mEq/L (98-107); Globulin 4.5 g/dL (2.4-3.5); Glucose 74 mg/dL (70-105); Osmolality,Calculated 309 (280-300); Potassium 4.2 mEq/L (3.5-5.1); Sodium 144 mEq/L (136-145); Total Protein 8.1 g/dL (6.4-8.9); Troponin I < 0.03 ng/mL (< 0.04); eGFR For African Americans 27 (> 60); eGFR For Non-African Americans 22 (> 60)
[2018-04-04] MEDS ORDERED: Dextrose Gel 15 GM/37.5 ML TUBE PO PRN ×2 (20:16)
[2018-04-04] MEDS ORDERED: *HR* Dextrose 50 % in Water (Syg) 50 ML SYRINGE IVP PRN (20:16)
[2018-04-04] MEDS ORDERED: Naloxone 0.4 MG/ML INJ IVP PRN (20:16)
[2018-04-04] MEDS ORDERED: Aspirin 81 MG TAB.CHEW PO SCH (20:16)
[2018-04-04 20:18] LABS: Bilirubin,Urine Negative (Negative); Blood,Urine Negative (Negative); Clarity,Urine Clear (Clear); Color,Urine Yellow (Yellow); Glucose,Urine (UA) Normal (Normal); Ketones,Urine Trace mg/dL (Negative); Leukocyte Esterase,Urine Negative (Negative); Nitrite,Urine Negative (Negative); Protein,Urine Trace mg/dL (Neg-Trace); Urobilinogen,Urine Normal (Normal)
[2018-04-04] MEDS: Divalproex (24 HR) 500 MG TABLET PO SCH (22:06)
[2018-04-04] MEDS: Albuterol 2.5 MG/3 ML NEBULIZER IH SCH (23:25)
[2018-04-05] MEDS: Albuterol 2.5 MG/3 ML NEBULIZER IH SCH ×3 (02:19→08:29)
[2018-04-05] MEDS: 0.9 % Sodium Chloride 1,000 ML IVC SCH ×2 (03:08→11:15)
[2018-04-05 05:26] LABS: Calcium 8.6 mg/dL (8.6-10.3); Potassium 4.1 mEq/L (3.5-5.1)
--- NOTE | 2018-04-05 07:13 | Electrocardiograph Report ---
[address] [address] Test Date: 2018-04-04 Pat Name: Jevon Baltazar Department: [id number] Room: [facility] Gender: M Smoke Eater: [id number] : 1940 Requested By: Josue Larson Order Number: [id number] Reading MD: Mike Jeffery Measurements Intervals [place] Rate: 56 P: UT: 0 QRS: 17 QRSD: 106 T: 60 QT: 266 QTc: 256 Interpretive Statements BASEINE ARTIFACT RHYTHM APPEARS TO BE SINUS BRADYCARDIA NONSPECIFIC ST & T-WAVE ABNORMALITY Electronically Signed On 04-05-2018 7:12:13 EDT by Mike Jeffery
--- NOTE | 2018-04-05 09:56 | Internal Med History&Physical ---
Date of Encounter: 04/05/18 Time of Encounter: 09:35 Assessment and Plan (1) Altered mental status Current visit: Yes Status: Acute Suspect due in part to acute renal insufficiency with possible dehydration. IV fluids have been started. Labs were monitored and further workup will be done as needed. Qualifiers: Altered mental status type: disorientation Qualified Code(s): R41.0 - Disorientation, unspecified (2) Anemia Current visit: No Status: Acute Continue ferrous sulfate with vitamin C. Monitor CBC. Qualifiers: Anemia type: iron deficiency Iron deficiency anemia type: unspecified iron deficiency Qualified Code(s): D50.9 - Iron deficiency anemia, unspecified (3) CKD (chronic kidney disease) stage 3, GFR 30-59 ml/min Current visit: No Status: Chronic Will give IV fluids and discontinue diuretics. Monitor renal indices. (4) Hypertension Current visit: No Status: Chronic Hold Lasix secondary to azotemia. Monitor blood pressure. Qualifiers: Hypertension type: essential hypertension Qualified Code(s): I10 - Essential (primary) hypertension (5) Acute on chronic renal failure Current visit: Yes Status: Acute As per above Qualifiers: Acute renal failure type: unspecified Chronic kidney disease stage: unspecified stage Qualified Code(s): N17.9 - Acute kidney failure, unspecified ; N18.9 - Chronic kidney disease, unspecified Internal Medicine - H&P: HPI Chief complaint: Altered mental status Admitted From: Emergency Dept Plans for Post Hospital Care: Home History of present illness: Mr. Baltazar is a 77 year old male who was sent from [facility] to the emergency room after staff reported decreased oral intake for 3 days and elevated blood sugar. He had no specific complaints in emergency room. Evaluation showed acute renal insufficiency and slight left shift on WBC differential. He was admitted to Medr floor for ongoing care needs. He is nonverbal at present time and cannot give any history. He was hospitalized at [facility] approximately 3 weeks ago with hypoglycemia. Past Med Surg Social Fam HX - Past Medical History Medical history: CHF, COPD, dementia, diabetes, GERD, hyperlipidemia, hypertension, renal disease, other Psychiatric history: schizophrenia, other - Past Surgical History Surgical History: other - Social History Smoking Status: Current some day smoker Smokeless Tobacco Status: No Alcohol use: none Drug use: none Internal Medicine - H&P: Meds Divalproex (24 HR) 1,000 mg PO HS 10/15/15 [History] Haloperidol 5 mg PO HS 10/15/15 [History] Atorvastatin [Lipitor] 10 mg PO HS 06/03/17 [History] Benztropine [Cogentin] 0.5 mg PO BID 06/03/17 [History] Linagliptin [Tradjenta] 5 mg PO DAILY 12/25/17 [History] [place] Carbonate 300 mg PO DAILY 12/25/17 [History] metFORMIN [Glucophage] 500 mg PO BIDWM 12/25/17 [History] GuaiFENesin/Dextromethorphan [Robitussin/Dm] 10 ml PO Q6HR PRN #120 syrup [Rx] Insulin ASPART [NovoLOG] 0 unit SQ TIDWM 03/10/18 [History] Ascorbic Acid [Vitamin C] 500 mg PO DAILY 30 Days tablet 03/14/18 [Rx] Aspirin 81 mg PO Q48H #0 03/14/18 [Rx] Ferrous Sulfate 325 mg PO DAILY 30 Days tablet 03/14/18 [Rx] Furosemide [Lasix] 20 mg PO Q48H #0 03/14/18 [Rx] Albuterol Neb [Proventil Neb] 2.5 mg IH Q4HR 04/04/18 [History] Quetiapine Fumarate [Seroquel] 200 mg PO TID 04/04/18 [History] 3 Allergy/AdvReac Type Severity Reaction Status Date / Time No Known Allergies Allergy Verified 12/25/17 09:24 All Systems PM: A 10-system review of systems was performed and is negative for pertinent findings except as documented above in the HPI. Review of systems: Review of systems from his February 2018 [facility] hospitalization were reviewed and revised as below. Gen.: His weight has decreased from 112.718 kg on 10/26/2015 to 93.157 kg at present. Cardiovascular: He denies hypertension. Amlodipine was discontinued during hospitalization last month. He did not know why he was taking it. He denies CA heart failure DVT or pulmonary embolus Respiratory: He has smoked since age 17 up to 1 pack per day. He does not wear oxygen at the residential. He denies chronic lung disease GI: He denies disorders of his liver gallbladder or exocrine pancreas : Denies hematuria dysuria kidney stones or other kidney or bladder problems. Review of records shows he has CKD stage III Neurologic: He has a diagnosis of dementia. He denies large distribution strokes or seizures Endocrine: He was diagnosed with DM 2 approximately 2012. There is no known thyroid disease or hyperlipidemia. Hematology/oncology: He denies blood disorders or cancers. Anemia testing during recent hospitalization showed findings consistent with iron deficiency. He was started on ferrous sulfate with vitamin C. Psychiatric: He has a diagnosis of schizophrenia per available records. He denied this. He denies other mental health disorders Musculoskeletal: Denies arthritis gout or osteoporosis - Constitutional Vitals: Temp Pulse Resp BP Pulse Ox 97.7 F 51 12 119/70 92 04/05/18 08:10 04/05/18 08:10 04/05/18 08:10 04/05/18 08:10 04/05/18 08:10 Exam: Gen.: He is a well-developed well-nourished male lying in bed who is nonverbal. He appears in no acute distress. His eyes were open but he does not follow commands. HEENT: Head is atraumatic and normocephalic. Eyes: EOMI. There is no scleral icterus. Mouth: Mucosa is moist. Neck: There is no thyromegaly or adenopathy noted. Heart: Regular without murmurs gallops or ectopics Lungs: No wheezes or crackles are heard. Abdomen: Soft and nontender. Bowel sounds are present. No masses or guarding are noted. Extremities: There is no cyanosis edema or clubbing noted. Dorsalis pedis and posttibial pulses are trace palpable. He has chronic venous stasis pigmentation changes of his feet and lower legs. Neurologic: Mental status: His eyes were open but he does not speak or follow commands. Cranial nerves: His gaze is conjugate. He has minimal facial movement spontaneously. Motor: He has equal arm tone on passive range of motion. He does not move spontaneously. No further neurologic testing is attempted. Skin: Warm and dry Internal Med - H&P Results - Labs CBC & Chem 7: 04/04/18 19:05 04/05/18 05:00 Labs: BMP 04/05/18 05:00 Sodium 148 H Potassium 4.1 Chloride 115 H Carbon Dioxide 26 BUN 45 H Creatinine 2.62 H Glucose 74 Calcium 8.6
[2018-04-05] MEDS ORDERED: Albuterol 2.5 MG/3 ML NEBULIZER IH PRN (10:08)
[2018-04-05] MEDS: Insulin LISPRO 300 UNITS/3 ML VIAL SQ SCH ×3 (11:00→17:32)
[2018-04-05] MEDS: Ascorbic Acid 500 MG TABLET PO SCH (11:01)
[2018-04-05] MEDS: Lithium Carbonate 300 MG CAPSULE PO SCH (11:02)
[2018-04-05] MEDS: (Linagliptin [Tradjenta] 5 MG) PO SCH (11:03)
[2018-04-05] MEDS: *HR* Dextrose 50 % in Water (Syg) 50 ML SYRINGE IVP PRN (18:25)
[2018-04-06 05:21] LABS: Basophils % 0.4 %; Eosinophils % 0.5 %; Hematocrit 36.5 % (37.5-50.1); Hemoglobin 10.9 g/dL (12.9-16.9); Immature Granulocytes % 0.9 % (0-4); Lymphocytes # 1.6 K/mcL (0.6-4.6); Lymphocytes % 20.5 %; Mean Corpuscular HGB Conc 29.9 g/dL (31.6-35.5); Mean Corpuscular Hemoglobin 25.9 pg (28.0-33.3); Mean Corpuscular Volume 86.7 fL (83.0-100.0); Monocytes # 1.2 K/mcL (0.0-1.3); Monocytes % 16.1 %; Neutrophils # 4.7 K/mcL (1.6-8.9); Platelet Count 193 K/mcL (140-400); Red Blood Count 4.21 M/mcL (4.19-5.50); Red Cell Distribution Width 18.9 % (11.5-14.5); Segmented Neutrophils % 61.6 %
[2018-04-06 05:41] LABS: Calcium 8.7 mg/dL (8.6-10.3); Potassium 4.2 mEq/L (3.5-5.1)
[2018-04-06] MEDS: Divalproex (24 HR) 500 MG TABLET PO SCH ×2 (07:16→21:21)
[2018-04-06] MEDS: Insulin LISPRO 300 UNITS/3 ML VIAL SQ SCH ×3 (07:18→16:39)
--- NOTE | 2018-04-06 10:08 | Internal Med Progress Note ---
Date of Encounter: 04/06/18 Time of Encounter: 10:00 - Assessment and plan (1) Altered mental status Current Visit: Yes Status: Acute Assessment and plan: April 06. Improved. Continue present treatment. Qualifiers: Altered mental status type: disorientation Qualified Code(s): R41.0 - Disorientation, unspecified (2) Anemia Current Visit: No Status: Acute Assessment and plan: April 06. Continue ferrous sulfate with vitamin C Qualifiers: Anemia type: iron deficiency Iron deficiency anemia type: unspecified iron deficiency Qualified Code(s): D50.9 - Iron deficiency anemia, unspecified (3) CKD (chronic kidney disease) stage 3, GFR 30-59 ml/min Current Visit: No Status: Chronic Assessment and plan: April 06. Azotemia improved. Continue IV fluids and remain off diuretics. (4) Hypertension Current Visit: No Status: Chronic Assessment and plan: April 06. Blood pressure stable. Remain off diuretics and continue to monitor blood pressure.. Qualifiers: Hypertension type: essential hypertension Qualified Code(s): I10 - Essential (primary) hypertension (5) Acute on chronic renal failure Current Visit: Yes Status: Acute Assessment and plan: April 06. As per above Qualifiers: Acute renal failure type: unspecified Chronic kidney disease stage: unspecified stage Qualified Code(s): N17.9 - Acute kidney failure, unspecified ; N18.9 - Chronic kidney disease, unspecified - Subjective Interval history: April 06. No new problems have arisen. - Constitutional Vitals: Temp Pulse Resp BP Pulse Ox 97.8 F 53 15 128/61 90 04/06/18 06:00 04/06/18 06:00 04/06/18 06:00 04/06/18 06:00 04/06/18 06:00 Exam: He is lying in bed with eyes open. He does not speak. He smiled and nodded to a question. I reviewed his medications and lab results. Internal Medicine: Result - Labs CBC & Chem 7: 04/06/18 05:15 04/06/18 05:15 Labs: Short CBC 04/06/18 Range/Units 05:15 WBC 7.7 (4.3-11.1) K/mcL Hgb 10.9 L (12.9-16.9) g/dL Hct 36.5 L (37.5-50.1) % Plt Count 193 (140-400) K/mcL Neutrophils # 4.7 (1.6-8.9) K/mcL BMP 04/06/18 05:15 Sodium 144 Potassium 4.2 Chloride 116 H Carbon Dioxide 22 L BUN 33 H Creatinine 2.31 H Glucose 65 L Calcium 8.7 - ABG Interpretation ABG results: PT/INR, D-dimer PT 12.7 Seconds (9.4-12.1) H 04/04/18 19:05 Consult Discharge Plan - Plan Referrals: Gavin Diallo MD [Primary Care Provider] - 1 week
[2018-04-06] MEDS: Aspirin 81 MG TAB.CHEW PO SCH (12:18)
[2018-04-06] MEDS: Ascorbic Acid 500 MG TABLET PO SCH (12:18)
[2018-04-06] MEDS: Lithium Carbonate 300 MG CAPSULE PO SCH (12:19)
[2018-04-06] MEDS: (Linagliptin [Tradjenta] 5 MG) PO SCH (12:19)
[2018-04-06] MEDS: *HR* Dextrose 50 % in Water (Syg) 50 ML SYRINGE IVP PRN (15:50)
[2018-04-07 05:41] LABS: Basophils % 0.3 %; Eosinophils # 0.1 K/mcL (0.0-0.6); Eosinophils % 1.4 %; Hematocrit 35.3 % (37.5-50.1); Hemoglobin 10.9 g/dL (12.9-16.9); Immature Granulocytes % 0.5 % (0-4); Lymphocytes # 1.6 K/mcL (0.6-4.6); Lymphocytes % 20.5 %; Mean Corpuscular HGB Conc 30.9 g/dL (31.6-35.5); Mean Corpuscular Hemoglobin 26.4 pg (28.0-33.3); Mean Corpuscular Volume 85.5 fL (83.0-100.0); Mean Platelet Volume 11.3 fL (9.4-12.4); Monocytes # 1.1 K/mcL (0.0-1.3); Neutrophils # 4.9 K/mcL (1.6-8.9); Platelet Count 203 K/mcL (140-400); Red Blood Count 4.13 M/mcL (4.19-5.50); Red Cell Distribution Width 18.5 % (11.5-14.5); Segmented Neutrophils % 63.3 %
[2018-04-07] MEDS: Ascorbic Acid 500 MG TABLET PO SCH (07:02)
[2018-04-07 07:11] LABS: Calcium 8.9 mg/dL (8.6-10.3); Potassium 4.3 mEq/L (3.5-5.1)
[2018-04-07] MEDS: (Linagliptin [Tradjenta] 5 MG) PO SCH (09:38)
[2018-04-07] MEDS: Lithium Carbonate 300 MG CAPSULE PO SCH (09:38)
[2018-04-07] MEDS: Insulin LISPRO 300 UNITS/3 ML VIAL SQ SCH ×3 (09:42→18:06)
--- NOTE | 2018-04-07 10:02 | Internal Med Progress Note ---
Date of Encounter: 04/07/18 Time of Encounter: 09:50 - Assessment and plan (1) Altered mental status Current Visit: Yes Status: Acute Assessment and plan: April 06. Improved. Continue present treatment. Qualifiers: Altered mental status type: disorientation Qualified Code(s): R41.0 - Disorientation, unspecified (2) Anemia Current Visit: No Status: Acute Assessment and plan: April 06. Continue ferrous sulfate with vitamin C April 07. Hemoglobin remained stable. Continue ferrous sulfate with vitamin C. Qualifiers: Anemia type: iron deficiency Iron deficiency anemia type: unspecified iron deficiency Qualified Code(s): D50.9 - Iron deficiency anemia, unspecified (3) CKD (chronic kidney disease) stage 3, GFR 30-59 ml/min Current Visit: No Status: Chronic Assessment and plan: April 06. Azotemia improved. Continue IV fluids and remain off diuretics. April 07. Azotemia further improved. Continue present regimen. (4) Hypertension Current Visit: No Status: Chronic Assessment and plan: April 06. Blood pressure stable. Remain off diuretics and continue to monitor blood pressure.. Qualifiers: Hypertension type: essential hypertension Qualified Code(s): I10 - Essential (primary) hypertension (5) Acute on chronic renal failure Current Visit: Yes Status: Acute Assessment and plan: April 06. As per above Qualifiers: Acute renal failure type: unspecified Chronic kidney disease stage: unspecified stage Qualified Code(s): N17.9 - Acute kidney failure, unspecified ; N18.9 - Chronic kidney disease, unspecified (6) Dysphagia Current Visit: Yes Status: Acute Assessment and plan: April 07. Swallowing evaluation ordered. Qualifiers: Dysphagia type: unspecified Qualified Code(s): R13.10 - Dysphagia, unspecified (7) Schizophrenia Current Visit: No Status: Chronic Assessment and plan: April 07. We will hold Haldol and see if parkinsonian features improve. Qualifiers: Schizophrenia type: unspecified Qualified Code(s): F20.9 - Schizophrenia, unspecified - Subjective Interval history: April 06. No new problems have arisen. April 07. He was unable to swallow pills or food safely yesterday. - Constitutional Vitals: Temp Pulse Resp BP Pulse Ox 97.8 F 45 16 137/64 95 04/07/18 06:15 04/07/18 06:15 04/07/18 06:15 04/07/18 06:15 04/07/18 06:15 Exam: He remains nonverbal. He has rhythmic tremor of his jaw and hands. His eyes are open. I reviewed his medications and lab results. Internal Medicine: Result - Labs CBC & Chem 7: 04/07/18 05:35 04/07/18 05:35 Labs: Short CBC 04/07/18 Range/Units 05:35 WBC 7.7 (4.3-11.1) K/mcL Hgb 10.9 L (12.9-16.9) g/dL Hct 35.3 L (37.5-50.1) % Plt Count 203 (140-400) K/mcL Neutrophils # 4.9 (1.6-8.9) K/mcL BMP 04/07/18 05:35 Sodium 147 H Potassium 4.3 Chloride 116 H Carbon Dioxide 23 BUN 25 H Creatinine 2.03 H Glucose 68 L Calcium 8.9 - ABG Interpretation ABG results: PT/INR, D-dimer PT 12.7 Seconds (9.4-12.1) H 04/04/18 19:05 - VTE Documentation of Mechanical Device: Graduated compression elastic hosiery Consult Discharge Plan - Plan Referrals: Gavin Daillo MD [Primary Care Provider] - 1 week
[2018-04-07] MEDS: D5% in Water 1,000 ML IVC PRN (19:27)
[2018-04-08] MEDS: Divalproex (24 HR) 500 MG TABLET PO SCH (00:51)
[2018-04-08] MEDS: Ascorbic Acid 500 MG TABLET PO SCH (05:26)
[2018-04-08] MEDS: D5% in Water 1,000 ML IVC PRN (05:46)
[2018-04-08 07:42] LABS: Calcium 8.9 mg/dL (8.6-10.3); Potassium 3.9 mEq/L (3.5-5.1)
[2018-04-08] MEDS: Aspirin 81 MG TAB.CHEW PO SCH (15:08)
[2018-04-08] MEDS: Lithium Carbonate 300 MG CAPSULE PO SCH (15:08)
--- NOTE | 2018-04-08 15:26 | Discharge Summary ---
Date of Encounter: 04/08/18 Time of Encounter: 10:25 - Discharge Diagnosis (1) Acute on chronic renal failure Priority: Primary Status: Acute Qualifiers: Acute renal failure type: unspecified Chronic kidney disease stage: unspecified stage Qualified Code(s): N17.9 - Acute kidney failure, unspecified ; N18.9 - Chronic kidney disease, unspecified (2) Altered mental status Priority: Secondary Status: Acute Qualifiers: Altered mental status type: disorientation Qualified Code(s): R41.0 - Disorientation, unspecified (3) Anemia Priority: Secondary Status: Acute Qualifiers: Anemia type: iron deficiency Iron deficiency anemia type: unspecified iron deficiency Qualified Code(s): D50.9 - Iron deficiency anemia, unspecified (4) CKD (chronic kidney disease) stage 3, GFR 30-59 ml/min Priority: Secondary Status: Chronic (5) Hypertension Priority: Secondary Status: Chronic Qualifiers: Hypertension type: essential hypertension Qualified Code(s): I10 - Essential (primary) hypertension (6) Dysphagia Priority: Secondary Status: Acute Qualifiers: Dysphagia type: unspecified Qualified Code(s): R13.10 - Dysphagia, unspecified (7) Schizophrenia Priority: Secondary Status: Chronic Qualifiers: Schizophrenia type: unspecified Qualified Code(s): F20.9 - Schizophrenia, unspecified Hospital course: Mr. Baltazar is a 77 year old male who was sent from [facility] to the emergency room after staff reported decreased oral intake for 3 days and elevated blood sugar. He had no specific complaints in emergency room. Evaluation showed acute renal insufficiency and slight left shift on WBC differential. He was admitted to [facility] floor for ongoing care needs. Initial orders were written by the emergency room physician. I saw him on April 05 and performed the history and physical. He was given IV fluids. Azotemia improved with creatinine decreasing to 1.82 by day of discharge. His mental status became more alert. Swallowing evaluation was done and it was recommended he be npo because of aspiration risk. It was felt patient would likely need a feeding tube since he has had a 40 pound weight loss since October 2015. Contact was made with [facility] and arrangements were completed for him to be transferred for PEG tube placement. - Time Spent with Patient Total time spent providing and/or coordinating discharge services: - Discharge Medications Home Medications: Divalproex (24 HR) 1,000 mg PO HS 10/15/15 [History] Haloperidol 5 mg PO HS 10/15/15 [History] Atorvastatin [Lipitor] 10 mg PO HS 06/03/17 [History] Benztropine [Cogentin] 0.5 mg PO BID 06/03/17 [History] Linagliptin [Tradjenta] 5 mg PO DAILY 12/25/17 [History] Manteno Carbonate 300 mg PO DAILY 12/25/17 [History] metFORMIN [Glucophage] 500 mg PO BIDWM 12/25/17 [History] GuaiFENesin/Dextromethorphan [Robitussin/Dm] 10 ml PO Q6HR PRN #120 syrup [Rx] Insulin ASPART [NovoLOG] 0 unit SQ TIDWM 03/10/18 [History] Ascorbic Acid [Vitamin C] 500 mg PO DAILY 30 Days tablet 03/14/18 [Rx] Aspirin 81 mg PO Q48H #0 03/14/18 [Rx] Ferrous Sulfate 325 mg PO DAILY 30 Days tablet 03/14/18 [Rx] Furosemide [Lasix] 20 mg PO Q48H #0 03/14/18 [Rx] Albuterol Neb [Proventil Neb] 2.5 mg IH Q4HR 04/04/18 [History] Quetiapine Fumarate [Seroquel] 200 mg PO TID 04/04/18 [History] Allergies/Adverse Reactions: 3 Allergy/AdvReac Type Severity Reaction Status Date / Time No Known Allergies Allergy Verified 12/25/17 09:24 Date of admission: 04/04/18 20:07 Primary care physician: Gavin Diallo MD Consults: 04/06/18 19:52 Consult to Speech Therapy [CONS] Routine Comment: Evaluate, develop and implement POC Reason for Consult: Patient seems to be aspirating. Currently NPO Time Notified: 19:53 Call Completed: Yes - Constitutional Vitals: Temp Pulse Resp BP Pulse Ox 97.4 F L 51 19 120/63 91 04/08/18 06:19 04/08/18 06:19 04/08/18 06:19 04/08/18 06:19 04/08/18 06:19 - Patient Status Disposition: Transfer Other Condition: Fair - Discharge Instructions - VTE Documentation of Mechanical Device: Graduated compression elastic hosiery
[2018-04-08] MEDS: Insulin LISPRO 300 UNITS/3 ML VIAL SQ SCH (16:09)
[2018-04-09 18:29] VITALS: BP 156/68
== END 2018-04-08 18:10 | disposition other institution (70) ==
LOC: INPPIK 18:46 → EMEROOPIK 18:46 → INPPIK 20:18
PROVIDERS: ADMIT Internal Medicine; ATTEND Internal Medicine